=== PATIENT | male | born 1935 | race African-American/Black ===

== ENCOUNTER 2017-10-31 04:25 | Inpatient (IN) ==
[2017-10-31] MEDS ORDERED: ALBUTEROL/IPRATROPIUM 3 ML NEB RESP TX STA (05:15)
[2017-10-31 06:19] LABS: Basophils # 0.1 10*3/uL (0.0-0.2); Basophils % 0.6 % (0.0-0.8); Eosinophils # 0.3 10*3/uL (0.0-0.87); Hematocrit 27.4 VOL% (42.0-52.0); Hemoglobin 8.8 GM/DL (14.0-18.0); Immature Granulocytes % 1.1 %; Immature Granulocytes Absolute 0.14 #; Lymphocytes # 1.3 10*3/uL (1.4-4.0); Lymphocytes % 9.9 % (21.2-54.2); Mean Corpuscular HGB Conc 32.1 GM/DL (32-36); Mean Corpuscular Hemoglobin 33 PG (27-34); Mean Corpuscular Volume 102.2 FL (87-102); Mean Platelet Volume 10.3 FL (9.6-12.0); Monocytes # 1.3 10*3/uL (0.11-0.8); Neutrophils # 9.8 10*3/uL (1.4-7.4); Neutrophils % 76.4 % (38.7-73.9); Platelet Count 175 T/CUMM (130-400); Red Blood Count 2.68 MC/CUMM (3.8-5.5); Red Cell Distribution Width 16.5 % (9.3-17.3); White Blood Count 12.8 T/CUMM (4-12)
[2017-10-31 07:05] LABS: Albumin 3.5 G/DL (3.4-5.0); Bilirubin,Total 0.5 MG/DL (0.2-1.0); Calcium 8.6 MG/DL (8.5-10.1); Osmolality,Calculated 283.1 MOS/KG (273-304); Potassium 5.1 MMOL/L (3.5-5.1); Total Protein 6.8 G/DL (6.4-8.3)
[2017-10-31 07:06] LABS: Troponin I Only 0.085 NG/ML (0.00-0.045)
[2017-10-31] MEDS ORDERED: ONDANSETRON 4 MG/2 ML VIAL IV PRN (07:56)
[2017-10-31] MEDS ORDERED: ACETAMINOPHEN 325 MG TABLET PO PRN (07:56)
[2017-10-31] MEDS ORDERED: PANTOPRAZOLE 40 MG TABLET PO ONE (10:09)
[2017-10-31] MEDS: PANTOPRAZOLE 40 MG TABLET PO SCH (10:14)
[2017-10-31] MEDS: ALBUTEROL/IPRATROPIUM 3 ML NEB RESP TX SCH ×2 (13:52→19:43)
[2017-10-31] MEDS ORDERED: EPOETIN ALFA 2,000 UNIT/1 ML VIAL IV PRN (16:54)
[2017-10-31] MEDS: BUDESONIDE 0.5 MG/2 ML NEB RESP TX SCH (19:43)
[2017-11-01] MEDS: ALBUTEROL/IPRATROPIUM 3 ML NEB RESP TX SCH ×4 (00:22→19:23)
[2017-11-01 06:13] LABS: Basophils # 0.1 10*3/uL (0.0-0.2); Basophils % 0.5 % (0.0-0.8); Eosinophils # 0.3 10*3/uL (0.0-0.87); Eosinophils % 2.5 % (0.00-10.9); Hematocrit 25.1 VOL% (42.0-52.0); Hemoglobin 7.9 GM/DL (14.0-18.0); Immature Granulocytes % 0.6 %; Immature Granulocytes Absolute 0.06 #; Lymphocytes # 1.6 10*3/uL (1.4-4.0); Lymphocytes % 16.5 % (21.2-54.2); Mean Corpuscular HGB Conc 31.5 GM/DL (32-36); Mean Corpuscular Hemoglobin 32 PG (27-34); Mean Corpuscular Volume 102.9 FL (87-102); Mean Platelet Volume 10.5 FL (9.6-12.0); Monocytes # 1.1 10*3/uL (0.11-0.8); Monocytes % 11.1 % (1.7-12.7); Neutrophils # 6.8 10*3/uL (1.4-7.4); Neutrophils % 68.8 % (38.7-73.9); Platelet Count 163 T/CUMM (130-400); Red Blood Count 2.44 MC/CUMM (3.8-5.5); Red Cell Distribution Width 16.3 % (9.3-17.3); White Blood Count 9.8 T/CUMM (4-12)
[2017-11-01 06:53] LABS: Calcium 8.3 MG/DL (8.5-10.1); Folate 19.9 NG/ML (5.4-24.0); Osmolality,Calculated 294.7 MOS/KG (273-304); Potassium 4.8 MMOL/L (3.5-5.1); Thyroid Stimulating Hormone 0.887 uIU/ml (0.358-3.74)
[2017-11-01] MEDS: BUDESONIDE 0.5 MG/2 ML NEB RESP TX SCH ×2 (07:53→19:23)
[2017-11-01] MEDS: PANTOPRAZOLE 40 MG TABLET PO SCH (13:58)
[2017-11-02] MEDS: ALBUTEROL/IPRATROPIUM 3 ML NEB RESP TX SCH ×4 (00:36→21:35)
[2017-11-02] MEDS: BUDESONIDE 0.5 MG/2 ML NEB RESP TX SCH ×2 (07:15→21:35)
[2017-11-02] MEDS: PANTOPRAZOLE 40 MG TABLET PO SCH (09:25)
[2017-11-02] MEDS: METOPROLOL TARTRATE 25 MG TABLET PO SCH ×2 (12:24→21:10)
[2017-11-03] MEDS: ALBUTEROL/IPRATROPIUM 3 ML NEB RESP TX SCH ×4 (01:43→19:33)
[2017-11-03] MEDS: BUDESONIDE 0.5 MG/2 ML NEB RESP TX SCH ×2 (07:33→19:33)
[2017-11-03] MEDS: PANTOPRAZOLE 40 MG TABLET PO SCH (09:09)
[2017-11-03] MEDS: METOPROLOL TARTRATE 25 MG TABLET PO SCH ×2 (09:09→20:39)
[2017-11-04] MEDS: ALBUTEROL/IPRATROPIUM 3 ML NEB RESP TX SCH ×4 (00:27→19:25)
[2017-11-04] MEDS: BUDESONIDE 0.5 MG/2 ML NEB RESP TX SCH ×2 (07:46→19:25)
[2017-11-04] MEDS: PANTOPRAZOLE 40 MG TABLET PO SCH (09:02)
[2017-11-04] MEDS: METOPROLOL TARTRATE 25 MG TABLET PO SCH ×2 (09:04→20:55)
[2017-11-04 15:06] LABS: Basophils # 0.1 10*3/uL (0.0-0.2); Basophils % 0.6 % (0.0-0.8); Eosinophils # 0.4 10*3/uL (0.0-0.87); Eosinophils % 4.2 % (0.00-10.9); Hematocrit 30.5 VOL% (42.0-52.0); Hemoglobin 9.6 GM/DL (14.0-18.0); Immature Granulocytes % 2.6 %; Immature Granulocytes Absolute 0.26 #; Lymphocytes # 1.5 10*3/uL (1.4-4.0); Lymphocytes % 14.8 % (21.2-54.2); Mean Corpuscular HGB Conc 31.5 GM/DL (32-36); Mean Corpuscular Hemoglobin 33 PG (27-34); Mean Corpuscular Volume 103.7 FL (87-102); Mean Platelet Volume 10.2 FL (9.6-12.0); Monocytes # 1.5 10*3/uL (0.11-0.8); Monocytes % 14.7 % (1.7-12.7); NRBC # 0.05 10*3/uL; Neutrophils # 6.4 10*3/uL (1.4-7.4); Neutrophils % 63.1 % (38.7-73.9); Platelet Count 189 T/CUMM (130-400); Red Blood Count 2.94 MC/CUMM (3.8-5.5); Red Cell Distribution Width 16.3 % (9.3-17.3); White Blood Count 10.1 T/CUMM (4-12)
[2017-11-05] MEDS: ALBUTEROL/IPRATROPIUM 3 ML NEB RESP TX SCH ×3 (00:37→13:45)
[2017-11-05] MEDS: BUDESONIDE 0.5 MG/2 ML NEB RESP TX SCH (07:35)
[2017-11-05 07:52] VITALS: BP 138/64
[2017-11-05] MEDS: PANTOPRAZOLE 40 MG TABLET PO SCH (08:10)
[2017-11-05] MEDS: METOPROLOL TARTRATE 25 MG TABLET PO SCH (08:10)
[2017-11-05] MEDS ORDERED: CALCIUM CARBONATE CHEW 500 MG TABLET PO ONE (14:25)
== END 2017-11-05 15:03 | disposition home or self-care (01) | DRG 291 ==
LOC: N.ED 04:25 → SUATTDRO 07:47 → N.EDINP 07:47 → N.3E 10:36
PROVIDERS: ADMIT Internal Medicine Infectious Disease; ATTEND Internal Medicine Cardiovascular Disease

== ENCOUNTER 2020-01-13 09:48 | Inpatient (IN) ==
[2020-01-13 10:56] LABS: Basophils # 0.1 10*3/uL (0.0-0.2); Basophils % 0.8 % (0.0-0.8); Eosinophils # 0.2 10*3/uL (0.0-0.87); Eosinophils % 1.3 % (0.00-10.9); Hematocrit 32.8 VOL% (42.0-52.0); Hemoglobin 10.5 GM/DL (14.0-18.0); Immature Granulocytes % 1.6 %; Immature Granulocytes Absolute 0.24 #; Lymphocytes # 0.7 10*3/uL (1.4-4.0); Lymphocytes % 5.1 % (21.2-54.2); Mean Corpuscular Volume 102.8 FL (87-102); Mean Platelet Volume 9.2 FL (9.6-12.0); Monocytes % 12.4 % (1.7-12.7); Neutrophils % 78.8 % (38.7-73.9); Platelet Count 323 T/CUMM (130-400); Red Blood Count 3.19 MC/CUMM (3.8-5.5); Red Cell Distribution Width 15.8 % (9.3-17.3); White Blood Count 14.6 T/CUMM (4-12)
[2020-01-13 11:15] LABS: Alanine Aminotransferase 24 U/L (16-61); Albumin 3.1 G/DL (3.4-5.0); Alkaline Phosphatase 78 U/L (45-117); Aspartate Amino Transferase 22 U/L (0-37); Blood Urea Nitrogen 33 MG/DL (7-18); Calcium 8.9 MG/DL (8.5-10.1); Estimated Glom Filtration Rate 5 ML/MIN; Glucose 164 MG/DL (74-106); Osmolality,Calculated 274.5 MOS/KG (273-304)
[2020-01-13 11:16] LABS: Troponin I 0.058 NG/ML (0.00-0.045)
[2020-01-13 11:20] LABS: Partial Thromboplastin Time 30.8 SECS (20.8-36.0)
[2020-01-13] MEDS ORDERED: cefTRIAXone 1,000 MG in SODIUM CHLORIDE 0.9% 100 ML IV STA (12:14)
[2020-01-13] MEDS ORDERED: ONDANSETRON 4 MG/2 ML VIAL IV PRN (13:05)
[2020-01-13] MEDS: AZITHROMYCIN INJ 500 MG in SODIUM CHLORIDE 0.9% 250 ML IV SCH (16:55)
[2020-01-13] MEDS ORDERED: METOPROLOL TARTRATE 5 MG/5 ML VIAL IV PRN (19:48)
[2020-01-13] MEDS: ALBUTEROL/IPRATROPIUM 3 ML NEB RESP TX SCH (20:36)
[2020-01-14] MEDS: ALBUTEROL/IPRATROPIUM 3 ML NEB RESP TX SCH ×2 (01:30→09:41)
[2020-01-14 05:25] LABS: Basophils # 0.1 10*3/uL (0.0-0.2); Basophils % 0.9 % (0.0-0.8); Eosinophils # 0.4 10*3/uL (0.0-0.87); Eosinophils % 2.5 % (0.00-10.9); Hematocrit 31.3 VOL% (42.0-52.0); Hemoglobin 9.9 GM/DL (14.0-18.0); Immature Granulocytes % 2.6 %; Lymphocytes # 1.4 10*3/uL (1.4-4.0); Lymphocytes % 9.4 % (21.2-54.2); Mean Corpuscular HGB Conc 31.6 GM/DL (32-36); Mean Corpuscular Volume 102.6 FL (87-102); Mean Platelet Volume 9.6 FL (9.6-12.0); Monocytes % 17.6 % (1.7-12.7); Platelet Count 288 T/CUMM (130-400); Red Blood Count 3.05 MC/CUMM (3.8-5.5); Red Cell Distribution Width 15.9 % (9.3-17.3); White Blood Count 15.3 T/CUMM (4-12)
[2020-01-14 05:53] LABS: Albumin 2.8 G/DL (3.4-5.0); Bilirubin,Total 0.4 MG/DL (0.2-1.0); Calcium 8.5 MG/DL (8.5-10.1); Osmolality,Calculated 276.1 MOS/KG (273-304); Total Protein 7.6 G/DL (6.4-8.3)
[2020-01-14 06:49] LABS: Atypical Lymphocytes Few; Band Neutrophils 1 % (0-10); Eosinophils 2 % (0-10); Hypochromasia 1+; Lymphocytes 13 % (20-55); Macrocytosis Slight; Segmented Neutrophils 70 % (50-85); Total Cells Counted 100
[2020-01-14 06:50] LABS: Platelet Estimate Normal
[2020-01-14] MEDS: PANTOPRAZOLE 40 MG TABLET PO SCH (12:17)
[2020-01-14] MEDS: DILTIAZEM CD 240 MG CAPSULE PO SCH (12:17)
[2020-01-14] MEDS: FLECAINIDE 50 MG TABLET PO SCH ×2 (12:17→21:13)
[2020-01-14] MEDS: cefTRIAXone 1,000 MG in SYRINGE 1 EACH IV SCH (12:17)
[2020-01-14] MEDS: APIXABAN 2.5 MG TABLET PO SCH ×2 (12:17→21:13)
[2020-01-14] MEDS: METOPROLOL TARTRATE 50 MG TABLET PO SCH (12:17)
[2020-01-14] MEDS: AZITHROMYCIN INJ 500 MG in SODIUM CHLORIDE 0.9% 250 ML IV SCH (14:17)
[2020-01-14] MEDS ORDERED: ALBUTEROL/IPRATROPIUM 3 ML NEB RESP TX SCH (17:00)
[2020-01-15 04:35] LABS: Basophils # 0.1 10*3/uL (0.0-0.2); Eosinophils # 0.7 10*3/uL (0.0-0.87); Eosinophils % 5.1 % (0.00-10.9); Hematocrit 32.2 VOL% (42.0-52.0); Hemoglobin 10.1 GM/DL (14.0-18.0); Immature Granulocytes % 4.8 %; Immature Granulocytes Absolute 0.69 #; Lymphocytes # 1.4 10*3/uL (1.4-4.0); Lymphocytes % 9.4 % (21.2-54.2); Mean Corpuscular HGB Conc 31.4 GM/DL (32-36); Mean Corpuscular Volume 104.2 FL (87-102); Mean Platelet Volume 9.3 FL (9.6-12.0); Monocytes % 15.1 % (1.7-12.7); Neutrophils % 64.6 % (38.7-73.9); Platelet Count 341 T/CUMM (130-400); Red Blood Count 3.09 MC/CUMM (3.8-5.5); Red Cell Distribution Width 15.9 % (9.3-17.3); White Blood Count 14.5 T/CUMM (4-12)
[2020-01-15 04:48] LABS: Calcium 8.4 MG/DL (8.5-10.1); Osmolality,Calculated 280.1 MOS/KG (273-304)
[2020-01-15 05:02] LABS: Eosinophils 7 % (0-10); Hypochromasia 1+; Lymphocytes 14 % (20-55); Platelet Estimate Adequate; Segmented Neutrophils 65 % (50-85); Total Cells Counted 100
[2020-01-15 05:03] LABS: Macrocytosis Slight; Ovalocytes Slight
[2020-01-15] MEDS: APIXABAN 2.5 MG TABLET PO SCH ×2 (08:39→20:34)
[2020-01-15] MEDS: DILTIAZEM CD 240 MG CAPSULE PO SCH (08:39)
[2020-01-15] MEDS: PANTOPRAZOLE 40 MG TABLET PO SCH (08:39)
[2020-01-15] MEDS: METOPROLOL TARTRATE 50 MG TABLET PO SCH (08:39)
[2020-01-15] MEDS: FLECAINIDE 50 MG TABLET PO SCH ×2 (08:40→20:35)
[2020-01-15] MEDS: cefTRIAXone 1,000 MG in SYRINGE 1 EACH IV SCH (13:15)
[2020-01-15] MEDS: AZITHROMYCIN INJ 500 MG in SODIUM CHLORIDE 0.9% 250 ML IV SCH (13:15)
[2020-01-15] MEDS: ZALEPLON 5 MG CAPSULE PO PRN (20:35)
[2020-01-16 03:49] LABS: Basophils # 0.1 10*3/uL (0.0-0.2); Basophils % 0.8 % (0.0-0.8); Eosinophils # 0.5 10*3/uL (0.0-0.87); Eosinophils % 3.4 % (0.00-10.9); Hematocrit 30.1 VOL% (42.0-52.0); Hemoglobin 9.4 GM/DL (14.0-18.0); Immature Granulocytes % 6.3 %; Immature Granulocytes Absolute 0.95 #; Lymphocytes # 1.4 10*3/uL (1.4-4.0); Lymphocytes % 9.2 % (21.2-54.2); Mean Corpuscular HGB Conc 31.2 GM/DL (32-36); Mean Corpuscular Volume 103.1 FL (87-102); Mean Platelet Volume 9.5 FL (9.6-12.0); Monocytes % 13.8 % (1.7-12.7); Neutrophils % 66.5 % (38.7-73.9); Platelet Count 314 T/CUMM (130-400); Red Blood Count 2.92 MC/CUMM (3.8-5.5); Red Cell Distribution Width 16.1 % (9.3-17.3); White Blood Count 15.1 T/CUMM (4-12)
[2020-01-16 04:03] LABS: Calcium 7.7 MG/DL (8.5-10.1); Osmolality,Calculated 288.1 MOS/KG (273-304)
[2020-01-16] MEDS: BENZONATATE 100 MG CAPSULE PO PRN ×2 (04:06→21:30)
[2020-01-16 04:21] LABS: Eosinophils 4 % (0-10); Lymphocytes 6 % (20-55); Nucleated Red Blood Cells 1 (0-5); Platelet Estimate Adequate; Segmented Neutrophils 70 % (50-85); Total Cells Counted 100
[2020-01-16 04:22] LABS: Hypochromasia 1+; Macrocytosis Slight; Ovalocytes Slight
[2020-01-16] MEDS: FLECAINIDE 50 MG TABLET PO SCH ×2 (09:22→21:30)
[2020-01-16] MEDS: METOPROLOL TARTRATE 50 MG TABLET PO SCH (09:22)
[2020-01-16] MEDS: PANTOPRAZOLE 40 MG TABLET PO SCH (09:22)
[2020-01-16] MEDS: DILTIAZEM CD 240 MG CAPSULE PO SCH (09:22)
[2020-01-16] MEDS: APIXABAN 2.5 MG TABLET PO SCH ×2 (09:22→21:30)
[2020-01-16] MEDS: cefTRIAXone 1,000 MG in SYRINGE 1 EACH IV SCH (12:20)
[2020-01-16] MEDS: AZITHROMYCIN INJ 500 MG in SODIUM CHLORIDE 0.9% 250 ML IV SCH (14:50)
[2020-01-16] MEDS: ZALEPLON 5 MG CAPSULE PO PRN (21:30)
[2020-01-17] MEDS: DILTIAZEM CD 240 MG CAPSULE PO SCH (09:07)
[2020-01-17] MEDS: METOPROLOL TARTRATE 50 MG TABLET PO SCH (09:08)
[2020-01-17] MEDS: FLECAINIDE 50 MG TABLET PO SCH ×2 (09:08→21:45)
[2020-01-17] MEDS: APIXABAN 2.5 MG TABLET PO SCH ×2 (09:08→21:45)
[2020-01-17] MEDS: PANTOPRAZOLE 40 MG TABLET PO SCH (09:08)
[2020-01-17] MEDS: cefTRIAXone 1,000 MG in SYRINGE 1 EACH IV SCH (15:43)
[2020-01-17] MEDS: AZITHROMYCIN INJ 500 MG in SODIUM CHLORIDE 0.9% 250 ML IV SCH (15:43)
[2020-01-17] MEDS: ZALEPLON 5 MG CAPSULE PO PRN (21:45)
[2020-01-17] MEDS: AMOXICILLIN/CLAV 500 MG TABLET PO SCH (21:45)
[2020-01-18] MEDS: METOPROLOL TARTRATE 50 MG TABLET PO SCH (08:44)
[2020-01-18] MEDS: APIXABAN 2.5 MG TABLET PO SCH ×2 (08:44→20:26)
[2020-01-18] MEDS: AMOXICILLIN/CLAV 500 MG TABLET PO SCH ×3 (08:44→20:25)
[2020-01-18] MEDS: DILTIAZEM CD 240 MG CAPSULE PO SCH (08:44)
[2020-01-18] MEDS: FLECAINIDE 50 MG TABLET PO SCH ×2 (08:44→20:26)
[2020-01-18] MEDS: PANTOPRAZOLE 40 MG TABLET PO SCH (08:44)
[2020-01-19] MEDS: AMOXICILLIN/CLAV 500 MG TABLET PO SCH ×3 (08:59→20:53)
[2020-01-19] MEDS: DILTIAZEM CD 240 MG CAPSULE PO SCH (08:59)
[2020-01-19] MEDS: FLECAINIDE 50 MG TABLET PO SCH ×2 (09:00→20:53)
[2020-01-19] MEDS: APIXABAN 2.5 MG TABLET PO SCH ×2 (09:00→20:53)
[2020-01-19] MEDS: PANTOPRAZOLE 40 MG TABLET PO SCH (09:00)
[2020-01-19] MEDS: METOPROLOL TARTRATE 50 MG TABLET PO SCH (09:00)
[2020-01-19] MEDS: CALCIUM CARBONATE CHEW 500 MG TABLET PO PRN (22:29)
[2020-01-20] MEDS: AMOXICILLIN/CLAV 500 MG TABLET PO SCH ×3 (08:00→21:26)
[2020-01-20] MEDS: APIXABAN 2.5 MG TABLET PO SCH ×2 (08:00→21:26)
[2020-01-20] MEDS: FLECAINIDE 50 MG TABLET PO SCH ×2 (08:00→21:26)
[2020-01-20] MEDS: METOPROLOL TARTRATE 50 MG TABLET PO SCH (08:00)
[2020-01-20] MEDS: DILTIAZEM CD 240 MG CAPSULE PO SCH (08:00)
[2020-01-20] MEDS: PANTOPRAZOLE 40 MG TABLET PO SCH (08:00)
[2020-01-20 14:04] LABS: Calcium 8.4 MG/DL (8.5-10.1); Osmolality,Calculated 273.9 MOS/KG (273-304)
[2020-01-21] MEDS: AMOXICILLIN/CLAV 500 MG TABLET PO SCH ×3 (10:09→20:14)
[2020-01-21] MEDS: FLECAINIDE 50 MG TABLET PO SCH ×2 (10:09→20:14)
[2020-01-21] MEDS: PANTOPRAZOLE 40 MG TABLET PO SCH (10:09)
[2020-01-21] MEDS: METOPROLOL TARTRATE 50 MG TABLET PO SCH (10:09)
[2020-01-21] MEDS: DILTIAZEM CD 240 MG CAPSULE PO SCH (10:09)
[2020-01-21] MEDS: APIXABAN 2.5 MG TABLET PO SCH ×2 (10:10→20:14)
[2020-01-22] MEDS: DILTIAZEM CD 240 MG CAPSULE PO SCH (08:16)
[2020-01-22] MEDS: PANTOPRAZOLE 40 MG TABLET PO SCH (08:16)
[2020-01-22] MEDS: APIXABAN 2.5 MG TABLET PO SCH ×2 (08:16→20:56)
[2020-01-22] MEDS: METOPROLOL TARTRATE 50 MG TABLET PO SCH (08:16)
[2020-01-22] MEDS: FLECAINIDE 50 MG TABLET PO SCH ×2 (08:18→20:56)
[2020-01-22] MEDS ORDERED: TUBERCULIN SKIN TEST 0.1 ML SYRINGE INTRADERM ONE ×2 (10:18→13:00)
[2020-01-22] MEDS: AMOXICILLIN/CLAV 500 MG TABLET PO SCH (16:19)
[2020-01-23] MEDS: APIXABAN 2.5 MG TABLET PO SCH ×3 (07:53→21:41)
[2020-01-23] MEDS: FLECAINIDE 50 MG TABLET PO SCH ×3 (07:53→21:42)
[2020-01-23] MEDS: PANTOPRAZOLE 40 MG TABLET PO SCH ×2 (07:54→08:01)
[2020-01-23] MEDS: METOPROLOL TARTRATE 50 MG TABLET PO SCH (08:01)
[2020-01-23] MEDS: DILTIAZEM CD 240 MG CAPSULE PO SCH (08:01)
[2020-01-23] MEDS: AMOXICILLIN/CLAV 500 MG TABLET PO SCH (18:14)
[2020-01-23] MEDS: CALCIUM CARBONATE CHEW 500 MG TABLET PO PRN (21:42)
[2020-01-24] MEDS ORDERED: ceFAZolin 1,000 MG in SYRINGE 1 EACH IV ONE (06:00)
[2020-01-24] MEDS: FLECAINIDE 50 MG TABLET PO SCH ×2 (08:34→20:22)
[2020-01-24] MEDS: METOPROLOL TARTRATE 50 MG TABLET PO SCH (08:35)
[2020-01-24] MEDS: DILTIAZEM CD 240 MG CAPSULE PO SCH (08:35)
[2020-01-24] MEDS: APIXABAN 2.5 MG TABLET PO SCH ×2 (08:40→20:22)
[2020-01-24] MEDS: PANTOPRAZOLE 40 MG TABLET PO SCH (08:40)
[2020-01-24] MEDS ORDERED: LIDOCAINE 1%/EPI INJ 20 ML VIAL ONE (09:23)
[2020-01-24] MEDS: SODIUM CHLORIDE 0.9% 250 ML IV SCH ×2 (09:45→11:00)
[2020-01-24] MEDS ORDERED: propofoL 200 MG/20 ML VIAL IV ONE (10:51)
[2020-01-24] MEDS ORDERED: LIDOCAINE 2% 5 ML VIAL ONE (10:52)
[2020-01-24 11:59] LABS: Basophils # 0.1 10*3/uL (0.0-0.2); Basophils % 0.9 % (0.0-0.8); Eosinophils # 0.3 10*3/uL (0.0-0.87); Eosinophils % 2.6 % (0.00-10.9); Hematocrit 29.1 VOL% (42.0-52.0); Hemoglobin 8.9 GM/DL (14.0-18.0); Immature Granulocytes % 4.1 %; Immature Granulocytes Absolute 0.46 #; Lymphocytes # 0.8 10*3/uL (1.4-4.0); Mean Corpuscular HGB Conc 30.6 GM/DL (32-36); Mean Corpuscular Volume 104.3 FL (87-102); Mean Platelet Volume 9.1 FL (9.6-12.0); Monocytes % 16.1 % (1.7-12.7); Neutrophils % 69.3 % (38.7-73.9); Platelet Count 276 T/CUMM (130-400); Red Blood Count 2.79 MC/CUMM (3.8-5.5); Red Cell Distribution Width 16.4 % (9.3-17.3); White Blood Count 11.3 T/CUMM (4-12)
[2020-01-24 12:22] LABS: Calcium 7.8 MG/DL (8.5-10.1); Osmolality,Calculated 275.4 MOS/KG (273-304)
[2020-01-24 14:44] LABS: Hypochromasia 2+; Lymphocytes 12 % (20-55); Microcytosis 1+; Platelet Estimate Adequate; Segmented Neutrophils 80 % (50-85); Total Cells Counted 100
[2020-01-24] MEDS: AMOXICILLIN/CLAV 500 MG TABLET PO SCH (16:43)
[2020-01-25] MEDS: APIXABAN 2.5 MG TABLET PO SCH ×2 (12:55→21:15)
[2020-01-25] MEDS: FLECAINIDE 50 MG TABLET PO SCH ×2 (12:55→21:15)
[2020-01-25] MEDS: PANTOPRAZOLE 40 MG TABLET PO SCH (12:55)
[2020-01-25] MEDS: DILTIAZEM CD 240 MG CAPSULE PO SCH (12:55)
[2020-01-25] MEDS: METOPROLOL TARTRATE 50 MG TABLET PO SCH (12:55)
[2020-01-25] MEDS: BENZONATATE 100 MG CAPSULE PO PRN (19:55)
[2020-01-25] MEDS: ACETAMINOPHEN 325 MG TABLET PO PRN (19:55)
[2020-01-26] MEDS: PANTOPRAZOLE 40 MG TABLET PO SCH (10:08)
[2020-01-26] MEDS: FLECAINIDE 50 MG TABLET PO SCH ×2 (10:08→21:02)
[2020-01-26] MEDS: APIXABAN 2.5 MG TABLET PO SCH ×2 (10:08→21:04)
[2020-01-26] MEDS: DILTIAZEM CD 240 MG CAPSULE PO SCH (10:08)
[2020-01-26] MEDS: METOPROLOL TARTRATE 50 MG TABLET PO SCH (10:09)
[2020-01-26] MEDS: BENZONATATE 100 MG CAPSULE PO PRN (21:02)
[2020-01-26] MEDS: ACETAMINOPHEN 325 MG TABLET PO PRN (21:02)
[2020-01-27] MEDS: METOPROLOL TARTRATE 50 MG TABLET PO SCH (09:07)
[2020-01-27] MEDS: BENZONATATE 100 MG CAPSULE PO PRN (09:07)
[2020-01-27] MEDS: DILTIAZEM CD 240 MG CAPSULE PO SCH (09:07)
[2020-01-27] MEDS: ACETAMINOPHEN 325 MG TABLET PO PRN ×2 (09:07→15:01)
[2020-01-27] MEDS: FLECAINIDE 50 MG TABLET PO SCH ×2 (09:07→21:30)
[2020-01-27] MEDS: APIXABAN 2.5 MG TABLET PO SCH ×2 (09:08→21:30)
[2020-01-27] MEDS: PANTOPRAZOLE 40 MG TABLET PO SCH (09:08)
[2020-01-27 09:46] LABS: Ferritin 1159.4 ng/ml (26-388)
[2020-01-27] MEDS ORDERED: DILTIAZEM CD 120 MG CAPSULE PO SCH (16:56)
[2020-01-28] MEDS: ACETAMINOPHEN 325 MG TABLET PO PRN ×2 (01:30→17:11)
[2020-01-28] MEDS: PANTOPRAZOLE 40 MG TABLET PO SCH (09:10)
[2020-01-28] MEDS: METOPROLOL TARTRATE 50 MG TABLET PO SCH (09:10)
[2020-01-28] MEDS: FLECAINIDE 50 MG TABLET PO SCH ×3 (09:10→21:07)
[2020-01-28] MEDS: APIXABAN 2.5 MG TABLET PO SCH ×2 (09:10→20:47)
[2020-01-28] MEDS ORDERED: VANCOMYCIN INJ 500 MG in SODIUM CHLORIDE 0.9% 100 ML IV PRN (14:44)
[2020-01-28] MEDS ORDERED: LEVOFLOXACIN INJ 500 MG in PREMIX 1 EACH IV SCH (16:00)
[2020-01-28] MEDS: CEFEPIME 1,000 MG in SODIUM CHLORIDE 0.9% 100 ML IV SCH (16:15)
[2020-01-28] MEDS ORDERED: VANCOMYCIN INJ 1,250 MG in SODIUM CHLORIDE 0.9% 250 ML IV ONE (17:00)
[2020-01-28 18:41] LABS: Basophils # 0.1 10*3/uL (0.0-0.2); Basophils % 0.7 % (0.0-0.8); Eosinophils % 0.3 % (0.00-10.9); Hematocrit 28.6 VOL% (42.0-52.0); Hemoglobin 9.1 GM/DL (14.0-18.0); Immature Granulocytes % 1.5 %; Lymphocytes # 0.8 10*3/uL (1.4-4.0); Lymphocytes % 11.6 % (21.2-54.2); Mean Corpuscular HGB Conc 31.8 GM/DL (32-36); Mean Corpuscular Volume 100.7 FL (87-102); Mean Platelet Volume 9.7 FL (9.6-12.0); Monocytes % 22.8 % (1.7-12.7); Neutrophils % 63.1 % (38.7-73.9); Platelet Count 176 T/CUMM (130-400); Red Blood Count 2.84 MC/CUMM (3.8-5.5); Red Cell Distribution Width 16.1 % (9.3-17.3); White Blood Count 6.7 T/CUMM (4-12)
[2020-01-28 19:03] LABS: Burr Cells Few; Hypochromasia Slight; Lymphocytes 17 % (20-55); Segmented Neutrophils 63 % (50-85); Total Cells Counted 100
[2020-01-28 19:04] LABS: Platelet Estimate Adequate
[2020-01-29 05:50] LABS: Basophils # 0.1 10*3/uL (0.0-0.2); Basophils % 0.8 % (0.0-0.8); Eosinophils % 0.7 % (0.00-10.9); Hemoglobin 8.2 GM/DL (14.0-18.0); Immature Granulocytes % 1.9 %; Immature Granulocytes Absolute 0.11 #; Lymphocytes # 0.9 10*3/uL (1.4-4.0); Lymphocytes % 14.8 % (21.2-54.2); Mean Corpuscular HGB Conc 32.8 GM/DL (32-36); Monocytes % 21.4 % (1.7-12.7); Neutrophils % 60.4 % (38.7-73.9); Platelet Count 175 T/CUMM (130-400); Red Blood Count 2.55 MC/CUMM (3.8-5.5); Red Cell Distribution Width 16.1 % (9.3-17.3); White Blood Count 5.9 T/CUMM (4-12)
[2020-01-29 06:10] LABS: Calcium 6.9 MG/DL (8.5-10.1); Osmolality,Calculated 275.7 MOS/KG (273-304)
[2020-01-29 06:12] LABS: Band Neutrophils 1 % (0-10); Eosinophils 4 % (0-10); Hypochromasia 1+; Lymphocytes 16 % (20-55); Ovalocytes Slight; Platelet Estimate Adequate; Segmented Neutrophils 59 % (50-85); Total Cells Counted 100
[2020-01-29] MEDS: APIXABAN 2.5 MG TABLET PO SCH ×2 (10:00→20:54)
[2020-01-29] MEDS: PANTOPRAZOLE 40 MG TABLET PO SCH (10:00)
[2020-01-29] MEDS: BENZONATATE 100 MG CAPSULE PO PRN (10:00)
[2020-01-29] MEDS: FLECAINIDE 50 MG TABLET PO SCH (10:30)
[2020-01-29] MEDS ORDERED: ALBUTEROL/IPRATROPIUM 3 ML NEB RESP TX PRN (12:12)
[2020-01-29] MEDS: CEFEPIME 1,000 MG in SODIUM CHLORIDE 0.9% 100 ML IV SCH (15:15)
[2020-01-29] MEDS: ACETAMINOPHEN 325 MG TABLET PO PRN (18:33)
[2020-01-30] MEDS: BENZONATATE 100 MG CAPSULE PO PRN ×2 (00:56→15:58)
[2020-01-30] MEDS: ACETAMINOPHEN 325 MG TABLET PO PRN ×2 (04:45→15:57)
[2020-01-30 06:02] LABS: Basophils % 0.3 % (0.0-0.8); Eosinophils % 0.3 % (0.00-10.9); Hematocrit 29.8 VOL% (42.0-52.0); Hemoglobin 9.1 GM/DL (14.0-18.0); Immature Granulocytes % 0.9 %; Immature Granulocytes Absolute 0.09 #; Lymphocytes # 0.6 10*3/uL (1.4-4.0); Lymphocytes % 5.9 % (21.2-54.2); Mean Corpuscular HGB Conc 30.5 GM/DL (32-36); Mean Corpuscular Volume 103.8 FL (87-102); Mean Platelet Volume 10.2 FL (9.6-12.0); Monocytes % 11.4 % (1.7-12.7); Neutrophils % 81.2 % (38.7-73.9); Platelet Count 157 T/CUMM (130-400); Red Blood Count 2.87 MC/CUMM (3.8-5.5); Red Cell Distribution Width 16.4 % (9.3-17.3); White Blood Count 9.8 T/CUMM (4-12)
[2020-01-30 06:17] LABS: Calcium 6.9 MG/DL (8.5-10.1); Osmolality,Calculated 280.7 MOS/KG (273-304)
[2020-01-30] MEDS: APIXABAN 2.5 MG TABLET PO SCH ×2 (10:06→21:00)
[2020-01-30] MEDS: PANTOPRAZOLE 40 MG TABLET PO SCH (10:06)
[2020-01-30] MEDS: CEFEPIME 1,000 MG in SODIUM CHLORIDE 0.9% 100 ML IV SCH (15:56)
[2020-01-31] MEDS: ACETAMINOPHEN 325 MG TABLET PO PRN ×2 (04:40→19:10)
[2020-01-31] MEDS: APIXABAN 2.5 MG TABLET PO SCH ×2 (08:57→20:15)
[2020-01-31] MEDS: PANTOPRAZOLE 40 MG TABLET PO SCH (08:57)
[2020-01-31] MEDS ORDERED: LEVOFLOXACIN INJ 500 MG in PREMIX 1 EACH IV SCH (12:00)
[2020-01-31] MEDS ORDERED: AZITHROMYCIN 250 MG TABLET PO ONE (14:00)
[2020-01-31] MEDS ORDERED: HYDROXYCHLOROQUINE 200 MG TABLET PO ONE (14:00)
[2020-01-31] MEDS: CEFEPIME 1,000 MG in SODIUM CHLORIDE 0.9% 100 ML IV SCH (15:07)
[2020-01-31] MEDS ORDERED: SODIUM CHLORIDE 0.9% 500 ML IV ONE (18:57)
[2020-01-31] MEDS: ALBUTEROL INHALER 8 GM INH SCH (19:40)
[2020-02-01] MEDS: ALBUTEROL INHALER 8 GM INH SCH ×2 (01:03→06:30)
[2020-02-01 07:15] LABS: ABG Base Excess -11.2 MMOL/L (-2.5-2.5); ABG HCO3 15.4 MMOL/L (20-26); ABG PCO2 26.9 MM HG (35-48); ABG PH 7.317 (7.35-7.45); ABG PO2 62.5 MM HG (80-95); ABG TCO2 12.7 MMOL/L (23-27)
[2020-02-01] MEDS ORDERED: ETOMIDATE 20 MG/10 ML VIAL IV ONE ×2 (08:00→08:01)
[2020-02-01] MEDS ORDERED: VECURONIUM 10 MG VIAL IV ONE ×2 (08:00→08:01)
[2020-02-01] MEDS ORDERED: NOREPINEPHRINE 4 MG/4 ML VIAL IV ONE (08:30)
[2020-02-01] MEDS ORDERED: HYDROXYCHLOROQUINE 200 MG TABLET PO ONE (09:00)
[2020-02-01] MEDS: AZITHROMYCIN 250 MG TABLET PO SCH (09:39)
[2020-02-01] MEDS: APIXABAN 2.5 MG TABLET PO SCH ×2 (09:39→23:11)
[2020-02-01] MEDS: PANTOPRAZOLE 40 MG VIAL IV SCH (09:39)
[2020-02-01] MEDS: ZINC SULFATE 220 MG CAPSULE PO SCH (09:39)
[2020-02-01] MEDS: ASPIRIN CHEW 81 MG TABLET PO SCH (09:39)
[2020-02-01 09:40] LABS: Basophils % 0.4 % (0.0-0.8); Eosinophils % 0.1 % (0.00-10.9); Hematocrit 33.3 VOL% (42.0-52.0); Hemoglobin 10.1 GM/DL (14.0-18.0); Immature Granulocytes % 2.8 %; Immature Granulocytes Absolute 0.27 #; Lymphocytes # 0.5 10*3/uL (1.4-4.0); Lymphocytes % 4.7 % (21.2-54.2); Mean Corpuscular HGB Conc 30.3 GM/DL (32-36); Mean Corpuscular Volume 102.5 FL (87-102); Mean Platelet Volume 10.4 FL (9.6-12.0); Monocytes % 8.3 % (1.7-12.7); Neutrophils % 83.7 % (38.7-73.9); Platelet Count 138 T/CUMM (130-400); Red Blood Count 3.25 MC/CUMM (3.8-5.5); Red Cell Distribution Width 16.6 % (9.3-17.3); White Blood Count 9.8 T/CUMM (4-12)
[2020-02-01 09:41] LABS: ABG HCO3 14.8 MMOL/L (20-26); ABG Oxygen Saturation 98.4 % (95-100); ABG PCO2 40.9 MM HG (35-48); ABG TCO2 13.5 MMOL/L (23-27)
[2020-02-01 10:00] LABS: Albumin 2.9 G/DL (3.4-5.0); Calcium 7.7 MG/DL (8.5-10.1); Osmolality,Calculated 282.2 MOS/KG (273-304); Total Protein 7.7 G/DL (6.4-8.3)
[2020-02-01 10:11] LABS: Anisocytosis 1+; Band Neutrophils 11 % (0-10); Eosinophils 1 % (0-10); Lymphocytes 5 % (20-55); Macrocytosis 1+; Platelet Estimate Adequate; Poikilocytosis Slight; Segmented Neutrophils 79 % (50-85); Total Cells Counted 100
[2020-02-01] MEDS ORDERED: DEXTROSE 10% 250 ML BAG IV ONE (10:30)
[2020-02-01] MEDS ORDERED: INSULIN REGULAR 100 UNIT/ML IV ONE (10:30)
[2020-02-01] MEDS ORDERED: CALCIUM GLUCONATE 1,000 MG in SODIUM CHLORIDE 0.9% 100 ML IV ONE (11:00)
[2020-02-01] MEDS ORDERED: AMIODARONE 150 MG/3 ML VIAL ONE (11:48)
[2020-02-01] MEDS ORDERED: AMIODARONE 450 MG/9 ML VIAL IV ONE (11:48)
[2020-02-01] MEDS ORDERED: AMIODARONE INJ 150 MG in DEXTROSE 5% 100 ML IV ONE (11:49)
[2020-02-01] MEDS ORDERED: AMIODARONE INJ 450 MG in DEXTROSE 5% 241 ML IV SCH ×2 (12:00→18:00)
[2020-02-01] MEDS ORDERED: ALBUMIN 25% 25 GM in PREMIX 1 EACH IV ONE (12:00)
[2020-02-01] MEDS: NOREPINEPHRINE 8 MG in SODIUM CHLORIDE 0.9% 242 ML IV PRN ×2 (12:00→22:07)
[2020-02-01] MEDS ORDERED: CALCIUM CHLORIDE 1,000 MG/10 ML SYRINGE IV ONE (12:10)
[2020-02-01] MEDS ORDERED: MAGNESIUM SULF RIDER 2 GM in PREMIX 1 EACH IV PRN (12:27)
[2020-02-01] MEDS ORDERED: POTASSIUM CHLORIDE RIDER 10 MEQ in PREMIX 1 EACH IV PRN (12:27)
[2020-02-01] MEDS ORDERED: LIDOCAINE 1% 20 ML VIAL ONE (12:48)
[2020-02-01] MEDS: CEFEPIME 1,000 MG in SODIUM CHLORIDE 0.9% 100 ML IV SCH (18:12)
[2020-02-01] MEDS: HYDROXYCHLOROQUINE 200 MG TABLET PO SCH (23:11)
[2020-02-02 03:36] LABS: ABG Base Excess 1.3 MMOL/L (-2.5-2.5); ABG HCO3 25.6 MMOL/L (20-26); ABG PCO2 29.1 MM HG (35-48); ABG PH 7.514 (7.35-7.45); ABG TCO2 20.7 MMOL/L (23-27); Allen Test Positive; Pt O2 Delivery Device Ventilator
[2020-02-02 05:41] LABS: ABG Base Excess 0.6 MMOL/L (-2.5-2.5); ABG Oxygen Saturation 99.6 % (95-100); ABG PCO2 32.5 MM HG (35-48); ABG PH 7.469 (7.35-7.45); ABG TCO2 20.4 MMOL/L (23-27)
[2020-02-02 05:49] LABS: Basophils % 0.6 % (0.0-0.8); Eosinophils # 0.1 10*3/uL (0.0-0.87); Eosinophils % 1.8 % (0.00-10.9); Hematocrit 52.2 VOL% (42.0-52.0); Immature Granulocytes % 3.1 %; Lymphocytes # 0.3 10*3/uL (1.4-4.0); Lymphocytes % 9.8 % (21.2-54.2); Mean Corpuscular HGB Conc 32.6 GM/DL (32-36); Mean Corpuscular Volume 95.8 FL (87-102); Mean Platelet Volume 10.9 FL (9.6-12.0); Monocytes % 4.3 % (1.7-12.7); Neutrophils % 80.4 % (38.7-73.9); Platelet Count 47 T/CUMM (130-400); Red Blood Count 5.45 MC/CUMM (3.8-5.5); Red Cell Distribution Width 16.8 % (9.3-17.3); White Blood Count 3.3 T/CUMM (4-12)
[2020-02-02 06:24] LABS: Albumin 2.5 G/DL (3.4-5.0); Calcium 7.8 MG/DL (8.5-10.1); Osmolality,Calculated 272.2 MOS/KG (273-304); Total Protein 6.3 G/DL (6.4-8.3)
[2020-02-02 06:35] LABS: Anisocytosis 1+; Hypochromasia 1+
[2020-02-02 06:36] LABS: Platelet Estimate Decreased
[2020-02-02] MEDS ORDERED: GLUCAGON 1 MG VIAL IM PRN (07:49)
[2020-02-02 07:53] LABS: ABG PH 7.186 (7.35-7.45)
[2020-02-02] MEDS: HYDROXYCHLOROQUINE 200 MG TABLET PO SCH ×2 (08:54→20:45)
[2020-02-02] MEDS: ASPIRIN CHEW 81 MG TABLET PO SCH (08:54)
[2020-02-02] MEDS: AMIODARONE 200 MG TABLET PO SCH (08:54)
[2020-02-02] MEDS: AZITHROMYCIN 250 MG TABLET PO SCH (08:54)
[2020-02-02] MEDS: PANTOPRAZOLE 40 MG VIAL IV SCH (08:56)
[2020-02-02] MEDS ORDERED: VANCOMYCIN INJ 500 MG in SODIUM CHLORIDE 0.9% 100 ML IV PRN (10:32)
[2020-02-02] MEDS ORDERED: VANCOMYCIN INJ 1,500 MG in SODIUM CHLORIDE 0.9% 500 ML IV ONE (12:00)
[2020-02-02] MEDS: DEXTROSE 10% 250 ML BAG IV PRN (12:10)
[2020-02-02] MEDS: INSULIN LISPRO 100 UNIT/ML SUBCUT SCH ×2 (12:24→18:07)
[2020-02-02] MEDS: ALBUMIN 25% 25 GM in PREMIX 1 EACH IV SCH ×2 (12:33→20:45)
[2020-02-02 12:44] LABS: Basophils % 0.3 % (0.0-0.8); Eosinophils # 0.1 10*3/uL (0.0-0.87); Eosinophils % 0.8 % (0.00-10.9); Hematocrit 28.1 VOL% (42.0-52.0); Hemoglobin 8.8 GM/DL (14.0-18.0); Immature Granulocytes % 4.5 %; Immature Granulocytes Absolute 0.54 #; Lymphocytes # 0.6 10*3/uL (1.4-4.0); Lymphocytes % 5.4 % (21.2-54.2); Mean Corpuscular HGB Conc 31.3 GM/DL (32-36); Mean Corpuscular Volume 98.9 FL (87-102); NRBC # 0.02 10*3/uL; Platelet Count 120 T/CUMM (130-400); Red Blood Count 2.84 MC/CUMM (3.8-5.5); Red Cell Distribution Width 16.6 % (9.3-17.3); White Blood Count 11.9 T/CUMM (4-12)
[2020-02-02] MEDS: NOREPINEPHRINE 8 MG in SODIUM CHLORIDE 0.9% 242 ML IV PRN ×2 (13:11→21:47)
[2020-02-02 13:21] LABS: INR 1.4; PT Patient Result 14.6 SECS (9.8-11.9)
[2020-02-02 13:23] LABS: Partial Thromboplastin Time 56.7 SECS (23.9-33.8)
[2020-02-02] MEDS ORDERED: AMIODARONE INJ 150 MG in DEXTROSE 5% 100 ML IV ONE (13:36)
[2020-02-02 13:37] LABS: Eosinophils 2 % (0-10); Hypochromasia 1+; Lymphocytes 5 % (20-55); Microcytosis 1+; Platelet Estimate Adequate; Segmented Neutrophils 91 % (50-85); Total Cells Counted 100
[2020-02-02] MEDS ORDERED: AMIODARONE 150 MG/3 ML VIAL ONE (13:43)
[2020-02-02] MEDS: CEFEPIME 1,000 MG in SODIUM CHLORIDE 0.9% 100 ML IV SCH (14:26)
[2020-02-02] MEDS ORDERED: DIGOXIN 0.5 MG/2 ML AMP IV ONE (15:20)
[2020-02-02] MEDS ORDERED: ROCURONIUM 500 MG in SODIUM CHLORIDE 0.9% 500 ML IV SCH (15:30)
[2020-02-02] MEDS: SCOPOLAMINE 1.5 MG PATCH TRANSDERM SCH (15:34)
[2020-02-02] MEDS: DILTIAZEM 30 MG TABLET PO SCH (18:06)
[2020-02-02] MEDS ORDERED: DOPamine 800 MG/250 ML PREMIX IV PRN (18:15)
[2020-02-02] MEDS ORDERED: DOPamine 800 MG/250 ML PREMIX IV ONE (18:16)
[2020-02-02] MEDS: APIXABAN 2.5 MG TABLET PO SCH (20:45)
[2020-02-02] MEDS: ACETAMINOPHEN 325 MG TABLET PO PRN (20:52)
[2020-02-02 21:58] LABS: ABG Base Excess -10.9 MMOL/L (-2.5-2.5); ABG HCO3 15.8 MMOL/L (20-26); ABG Oxygen Saturation 99.4 % (95-100); ABG PCO2 39.8 MM HG (35-48); ABG TCO2 15.2 MMOL/L (23-27)
[2020-02-02] MEDS ORDERED: LIDOCAINE 1% 20 ML VIAL ONE (22:56)
[2020-02-03] MEDS: INSULIN LISPRO 100 UNIT/ML SUBCUT SCH ×4 (01:59→17:11)
[2020-02-03] MEDS: MIDAZOLAM 100 MG in SODIUM CHLORIDE 0.9% 80 ML IV PRN ×2 (04:51→21:18)
[2020-02-03 05:01] LABS: ABG Base Excess -8.4 MMOL/L (-2.5-2.5); ABG HCO3 17.1 MMOL/L (20-26); ABG Oxygen Saturation 99.6 % (95-100); ABG PCO2 35.1 MM HG (35-48); ABG PH 7.306 (7.35-7.45); ABG PO2 397.7 MM HG (80-95); ABG TCO2 18.2 MMOL/L (23-27)
[2020-02-03 05:03] LABS: Basophils # 0.1 10*3/uL (0.0-0.2); Basophils % 0.3 % (0.0-0.8); Hematocrit 28.1 VOL% (42.0-52.0); Hemoglobin 8.7 GM/DL (14.0-18.0); Immature Granulocytes % 7.6 %; Immature Granulocytes Absolute 1.52 #; Lymphocytes # 0.6 10*3/uL (1.4-4.0); Lymphocytes % 3.2 % (21.2-54.2); Mean Corpuscular Volume 101.4 FL (87-102); Mean Platelet Volume 11.8 FL (9.6-12.0); Monocytes % 2.6 % (1.7-12.7); NRBC # 0.12 10*3/uL; Neutrophils % 86.3 % (38.7-73.9); Platelet Count 135 T/CUMM (130-400); Red Blood Count 2.77 MC/CUMM (3.8-5.5); Red Cell Distribution Width 16.7 % (9.3-17.3); White Blood Count 19.9 T/CUMM (4-12)
[2020-02-03] MEDS: ALBUMIN 25% 25 GM in PREMIX 1 EACH IV SCH (05:33)
[2020-02-03 05:44] LABS: Albumin 3.1 G/DL (3.4-5.0); Bilirubin,Total 1.3 MG/DL (0.2-1.0); Calcium 7.5 MG/DL (8.5-10.1); Osmolality,Calculated 279.2 MOS/KG (273-304); Total Protein 6.8 G/DL (6.4-8.3)
[2020-02-03 06:01] LABS: Lymphocytes 5 % (20-55); Myelocytes 1 %; Segmented Neutrophils 86 % (50-85); Total Cells Counted 100
[2020-02-03 06:02] LABS: Anisocytosis 1+; Ovalocytes 1+; Platelet Estimate Normal
[2020-02-03] MEDS: NOREPINEPHRINE 8 MG in SODIUM CHLORIDE 0.9% 242 ML IV PRN (08:00)
[2020-02-03] MEDS: ASPIRIN CHEW 81 MG TABLET PO SCH (09:13)
[2020-02-03] MEDS: APIXABAN 2.5 MG TABLET PO SCH ×2 (09:13→20:51)
[2020-02-03] MEDS: AZITHROMYCIN 250 MG TABLET PO SCH (09:13)
[2020-02-03] MEDS: ZINC SULFATE 220 MG CAPSULE PO SCH (09:14)
[2020-02-03] MEDS: HYDROXYCHLOROQUINE 200 MG TABLET PO SCH ×2 (09:14→20:51)
[2020-02-03] MEDS: FAMOTIDINE 20 MG/2 ML VIAL IV SCH (09:17)
[2020-02-03] MEDS: CEFEPIME 1,000 MG in SODIUM CHLORIDE 0.9% 100 ML IV SCH (15:00)
[2020-02-04] MEDS: INSULIN LISPRO 100 UNIT/ML SUBCUT SCH ×4 (01:38→17:49)
[2020-02-04] MEDS: ACETAMINOPHEN 325 MG TABLET PO PRN ×2 (03:51→08:12)
[2020-02-04 04:42] LABS: ABG HCO3 19.8 MMOL/L (20-26); ABG Oxygen Saturation 97.7 % (95-100); ABG PCO2 27.7 MM HG (35-48); ABG PH 7.473 (7.35-7.45); ABG PO2 105.5 MM HG (80-95); ABG TCO2 20.7 MMOL/L (23-27)
[2020-02-04 04:48] LABS: Basophils # 0.1 10*3/uL (0.0-0.2); Basophils % 0.5 % (0.0-0.8); Eosinophils # 0.1 10*3/uL (0.0-0.87); Eosinophils % 0.5 % (0.00-10.9); Hematocrit 26.6 VOL% (42.0-52.0); Hemoglobin 8.5 GM/DL (14.0-18.0); Immature Granulocytes % 11.1 %; Immature Granulocytes Absolute 1.71 #; Lymphocytes # 0.4 10*3/uL (1.4-4.0); Lymphocytes % 2.3 % (21.2-54.2); Mean Corpuscular Volume 99.3 FL (87-102); Mean Platelet Volume 11.8 FL (9.6-12.0); Monocytes % 4.8 % (1.7-12.7); NRBC # 0.48 10*3/uL; Neutrophils % 80.8 % (38.7-73.9); Platelet Count 147 T/CUMM (130-400); Red Blood Count 2.68 MC/CUMM (3.8-5.5); Red Cell Distribution Width 16.9 % (9.3-17.3); White Blood Count 15.5 T/CUMM (4-12)
[2020-02-04 05:12] LABS: Calcium 7.8 MG/DL (8.5-10.1); Osmolality,Calculated 279.2 MOS/KG (273-304)
[2020-02-04] MEDS: NOREPINEPHRINE 8 MG in SODIUM CHLORIDE 0.9% 242 ML IV PRN ×2 (06:04→17:34)
[2020-02-04 06:33] LABS: Band Neutrophils 16 % (0-10); Eosinophils 2 % (0-10); Lymphocytes 1 % (20-55); Macrocytosis 1+; Metamyelocytes 2 %; Myelocytes 2 %; Nucleated Red Blood Cells 5 (0-5); Segmented Neutrophils 72 % (50-85); Total Cells Counted 100
[2020-02-04 06:34] LABS: Anisocytosis 2+; Giant Platelets Few
[2020-02-04] MEDS: HYDROXYCHLOROQUINE 200 MG TABLET PO SCH ×2 (08:10→20:12)
[2020-02-04] MEDS: FAMOTIDINE 20 MG/2 ML VIAL IV SCH (08:11)
[2020-02-04] MEDS: APIXABAN 2.5 MG TABLET PO SCH ×2 (08:11→20:11)
[2020-02-04] MEDS: AZITHROMYCIN 250 MG TABLET PO SCH (08:11)
[2020-02-04] MEDS: ASPIRIN CHEW 81 MG TABLET PO SCH (08:11)
[2020-02-04] MEDS: CEFEPIME 1,000 MG in SODIUM CHLORIDE 0.9% 100 ML IV SCH (14:02)
[2020-02-04] MEDS: DEXMEDETOMIDINE 200 MCG in SODIUM CHLORIDE 0.9% 48 ML IV PRN (16:13)
[2020-02-05] MEDS: INSULIN LISPRO 100 UNIT/ML SUBCUT SCH ×4 (01:46→18:35)
[2020-02-05] MEDS: MIDAZOLAM 100 MG in SODIUM CHLORIDE 0.9% 80 ML IV PRN ×2 (01:48→19:04)
[2020-02-05 04:51] LABS: ABG Base Excess -4.7 MMOL/L (-2.5-2.5); ABG HCO3 20.5 MMOL/L (20-26); ABG Oxygen Saturation 97.4 % (95-100); ABG PCO2 42.5 MM HG (35-48); ABG TCO2 19.3 MMOL/L (23-27)
[2020-02-05 04:58] LABS: Basophils # 0.1 10*3/uL (0.0-0.2); Basophils % 0.7 % (0.0-0.8); Eosinophils # 0.3 10*3/uL (0.0-0.87); Eosinophils % 1.4 % (0.00-10.9); Hematocrit 25.1 VOL% (42.0-52.0); Immature Granulocytes % 18.5 %; Immature Granulocytes Absolute 3.32 #; Lymphocytes # 0.6 10*3/uL (1.4-4.0); Lymphocytes % 3.3 % (21.2-54.2); Mean Corpuscular HGB Conc 31.9 GM/DL (32-36); Mean Platelet Volume 10.8 FL (9.6-12.0); Monocytes % 5.5 % (1.7-12.7); NRBC # 1.24 10*3/uL; Neutrophils % 70.6 % (38.7-73.9); Platelet Count 162 T/CUMM (130-400); Red Blood Count 2.51 MC/CUMM (3.8-5.5)
[2020-02-05 05:19] LABS: Band Neutrophils 4 % (0-10); Eosinophils 1 % (0-10); Hypochromasia 1+; Lymphocytes 6 % (20-55); Metamyelocytes 5 %; Myelocytes 1 %; Nucleated Red Blood Cells 6 (0-5); Segmented Neutrophils 78 % (50-85); Total Cells Counted 100
[2020-02-05 05:20] LABS: Anisocytosis 1+; Macrocytosis 1+; Ovalocytes Slight; Platelet Estimate Adequate
[2020-02-05 05:31] LABS: Albumin 2.5 G/DL (3.4-5.0); Bilirubin,Total 0.7 MG/DL (0.2-1.0); Calcium 7.3 MG/DL (8.5-10.1); Osmolality,Calculated 291.1 MOS/KG (273-304); Total Protein 6.1 G/DL (6.4-8.3)
[2020-02-05] MEDS: DEXMEDETOMIDINE 200 MCG in SODIUM CHLORIDE 0.9% 48 ML IV PRN ×2 (06:44→16:43)
[2020-02-05] MEDS ORDERED: methylPREDNISolone SOD SUC 40 MG/1 ML VIAL IV ONE (08:53)
[2020-02-05] MEDS: FAMOTIDINE 20 MG/2 ML VIAL IV SCH (09:32)
[2020-02-05] MEDS: APIXABAN 2.5 MG TABLET PO SCH ×2 (09:32→22:57)
[2020-02-05] MEDS: HYDROXYCHLOROQUINE 200 MG TABLET PO SCH (09:33)
[2020-02-05] MEDS: SCOPOLAMINE 1.5 MG PATCH TRANSDERM SCH (09:33)
[2020-02-05] MEDS: ZINC SULFATE 220 MG CAPSULE PO SCH (09:33)
[2020-02-05] MEDS: DILTIAZEM 30 MG TABLET PO SCH ×3 (09:35→18:36)
[2020-02-05] MEDS: AMIODARONE 200 MG TABLET PO SCH (09:35)
[2020-02-05] MEDS: ASPIRIN CHEW 81 MG TABLET PO SCH (09:35)
[2020-02-05] MEDS: CEFEPIME 1,000 MG in SODIUM CHLORIDE 0.9% 100 ML IV SCH (16:03)
[2020-02-05] MEDS: NOREPINEPHRINE 8 MG in SODIUM CHLORIDE 0.9% 242 ML IV PRN (20:27)
[2020-02-06] MEDS: DILTIAZEM 30 MG TABLET PO SCH ×5 (00:14→21:54)
[2020-02-06] MEDS: INSULIN LISPRO 100 UNIT/ML SUBCUT SCH ×4 (02:05→17:38)
[2020-02-06 05:33] LABS: ABG Base Excess -10.4 MMOL/L (-2.5-2.5); ABG HCO3 16.3 MMOL/L (20-26); ABG Oxygen Saturation 98.3 % (95-100); ABG PCO2 67.5 MM HG (35-48); ABG TCO2 19.6 MMOL/L (23-27)
[2020-02-06 05:48] LABS: Basophils # 0.1 10*3/uL (0.0-0.2); Basophils % 0.2 % (0.0-0.8); Hematocrit 27.4 VOL% (42.0-52.0); Hemoglobin 8.4 GM/DL (14.0-18.0); Immature Granulocytes % 19.3 %; Immature Granulocytes Absolute 4.73 #; Lymphocytes # 0.8 10*3/uL (1.4-4.0); Lymphocytes % 3.3 % (21.2-54.2); Mean Corpuscular HGB Conc 30.7 GM/DL (32-36); Mean Corpuscular Volume 101.5 FL (87-102); Mean Platelet Volume 11.2 FL (9.6-12.0); NRBC # 1.97 10*3/uL; Neutrophils % 69.2 % (38.7-73.9); Platelet Count 196 T/CUMM (130-400); Red Cell Distribution Width 17.5 % (9.3-17.3); White Blood Count 24.6 T/CUMM (4-12)
[2020-02-06 05:59] LABS: Calcium 7.7 MG/DL (8.5-10.1); Osmolality,Calculated 302.2 MOS/KG (273-304)
[2020-02-06 06:09] LABS: Band Neutrophils 3 % (0-10); Hypochromasia 1+; Lymphocytes 4 % (20-55); Metamyelocytes 3 %; Myelocytes 2 %; Nucleated Red Blood Cells 7 (0-5); Segmented Neutrophils 81 % (50-85); Total Cells Counted 100
[2020-02-06 06:10] LABS: Macrocytosis 1+; Platelet Estimate Adequate; Target Cells Slight
[2020-02-06] MEDS: DEXMEDETOMIDINE 200 MCG in SODIUM CHLORIDE 0.9% 48 ML IV PRN ×2 (06:44→18:34)
[2020-02-06] MEDS: ASPIRIN CHEW 81 MG TABLET PO SCH (10:26)
[2020-02-06] MEDS: APIXABAN 2.5 MG TABLET PO SCH ×2 (10:26→21:55)
[2020-02-06] MEDS: FAMOTIDINE 20 MG/2 ML VIAL IV SCH (10:27)
[2020-02-06] MEDS: NOREPINEPHRINE 8 MG in SODIUM CHLORIDE 0.9% 242 ML IV PRN ×2 (11:10→22:30)
[2020-02-06] MEDS: AMIODARONE 200 MG TABLET PO SCH (12:48)
[2020-02-06] MEDS ORDERED: ALBUMIN 25% 25 GM/100 ML VIAL IV ONE (13:52)
[2020-02-06] MEDS: CEFEPIME 1,000 MG in SODIUM CHLORIDE 0.9% 100 ML IV SCH (14:48)
[2020-02-06] MEDS: MIDAZOLAM 100 MG in SODIUM CHLORIDE 0.9% 80 ML IV PRN (15:27)
[2020-02-06 16:51] LABS: HIT Interpretation Negative (Negative)
[2020-02-06] MEDS ORDERED: NOREPINEPHRINE 4 MG/4 ML VIAL IV ONE (22:26)
[2020-02-07] MEDS: DEXTROSE 10% 250 ML BAG IV PRN ×2 (00:55→04:45)
[2020-02-07] MEDS: INSULIN LISPRO 100 UNIT/ML SUBCUT SCH ×2 (02:14→06:27)
[2020-02-07] MEDS: NOREPINEPHRINE 8 MG in SODIUM CHLORIDE 0.9% 242 ML IV PRN (03:49)
[2020-02-07 03:58] LABS: ABG Base Excess -15.8 MMOL/L (-2.5-2.5); ABG HCO3 16.4 MMOL/L (20-26); ABG Oxygen Saturation 98.5 % (95-100); ABG TCO2 18.9 MMOL/L (23-27)
[2020-02-07 04:13] LABS: Calcium 7.2 MG/DL (8.5-10.1); Osmolality,Calculated 291.2 MOS/KG (273-304)
[2020-02-07 04:22] LABS: Basophils # 0.1 10*3/uL (0.0-0.2); Basophils % 0.3 % (0.0-0.8); Hematocrit 22.7 VOL% (42.0-52.0); Hemoglobin 6.5 GM/DL (14.0-18.0); Immature Granulocytes % 15.4 %; Immature Granulocytes Absolute 3.63 #; Lymphocytes # 0.8 10*3/uL (1.4-4.0); Lymphocytes % 3.3 % (21.2-54.2); Mean Corpuscular HGB Conc 28.6 GM/DL (32-36); Mean Corpuscular Volume 110.7 FL (87-102); Mean Platelet Volume 11.6 FL (9.6-12.0); Monocytes % 11.7 % (1.7-12.7); NRBC # 3.62 10*3/uL; Neutrophils % 69.3 % (38.7-73.9); Platelet Count 173 T/CUMM (130-400); Red Blood Count 2.05 MC/CUMM (3.8-5.5); Red Cell Distribution Width 17.8 % (9.3-17.3); White Blood Count 23.5 T/CUMM (4-12)
[2020-02-07 04:28] LABS: ABG PCO2 81.8 MM HG (35-48)
[2020-02-07 04:46] LABS: Band Neutrophils 6 % (0-10); Lymphocytes 6 % (20-55); Nucleated Red Blood Cells 24 (0-5); Platelet Estimate Adequate; Segmented Neutrophils 78 % (50-85); Total Cells Counted 100
[2020-02-07 04:47] LABS: Hypochromasia 2+; Macrocytosis Slight; Ovalocytes Slight
[2020-02-07] MEDS ORDERED: SODIUM BICARBONATE 50 MEQ/50 ML VIAL IV ONE ×2 (05:13→09:00)
[2020-02-07] MEDS ORDERED: SODIUM CHLORIDE 0.9% 1,000 ML IV PRN (05:14)
[2020-02-07] MEDS ORDERED: CALCIUM GLUCONATE 1,000 MG/10 ML VIAL IV ONE (05:16)
[2020-02-07] MEDS ORDERED: CALCIUM GLUCONATE 1,000 MG in SODIUM CHLORIDE 0.9% 100 ML IV ONE (06:00)
[2020-02-07] MEDS: FAMOTIDINE 20 MG/2 ML VIAL IV SCH (08:15)
[2020-02-07] MEDS: AMIODARONE 200 MG TABLET PO SCH (08:25)
[2020-02-07 08:39] LABS: ABG Base Excess -22.8 MMOL/L (-2.5-2.5); ABG HCO3 7.4 MMOL/L (20-26); ABG PCO2 48.9 MM HG (35-48); ABG TCO2 9.3 MMOL/L (23-27)
[2020-02-07 08:41] LABS: ABG PH 6.856 (7.35-7.45)
[2020-02-07] MEDS: DILTIAZEM 30 MG TABLET PO SCH (08:42)
[2020-02-07] MEDS ORDERED: PANTOPRAZOLE 40 MG VIAL IV SCH (09:00)
[2020-02-07] MEDS: DEXMEDETOMIDINE 200 MCG in SODIUM CHLORIDE 0.9% 48 ML IV PRN (09:38)
[2020-02-07] MEDS ORDERED: HYDROCORTISONE 100 MG VIAL IV SCH (10:00)
[2020-02-07] MEDS ORDERED: SODIUM BICARB INJ 50 MEQ in SODIUM CHLORIDE 0.45% 1,000 ML IV SCH (11:00)
[2020-02-07 12:28] VITALS: BP 77/47
== END 2020-02-07 11:38 | disposition expired | DRG 987 ==
LOC: N.ED 09:48 → N.EDINP 13:05 → SUATTDRO 13:05 → N.CC 15:32 → N.5E 01-20 14:53 → N.2E 01-27 13:02 → N.CC 02-01 07:06
PROVIDERS: ADMIT Nurse Practitioner Family; ATTEND Internal Medicine
PROC: CLCCHCL (ICD-10-PCS; 2020-02-01 13:15)